=== PATIENT | female | born 1970 | race Caucasian/White ===

== ENCOUNTER 2018-11-07 18:14 | Emergency (ER) | payer MEDICAID ==
[~2018-11-07] VITALS: Ht 160 cm; Wt 136.1 kg
[2018-11-07 18:18] VITALS: BP 158/95
--- NOTE | 2018-11-07 18:20 | NUR ---
PT PLACED IN BED 4 BY EMS.
--- NOTE | 2018-11-07 18:30 | NUR ---
BIBA C/O ABD PAIN AND VAGINAL BLEEDING X2 WEEKS. PT STATES THIS IS HER NORMAL MENSTRUAL CYCLE AND USUALLY HAS HEAVY PERIODS; PT STATES CHANGES 4 PADS DAILY. PT ALSO C/O DARK RED BLOOD IN STOOL. PT HAS BEEN ON MOTRIN FOR YEARS. DENIES NAUSEA, VOMITING, HAEMATEMESIS, DIARRHEA, OR CONSTIPATION. LBM WAS YESTERDAY. PATIENT STATES PAIN OF 6/10 AT THIS TIME; VSS; PATIENT POSITIONED FOR COMFORT; HOB ELEVATED; BEDRAILS UP X2; BED DOWN. ER MD MADE AWARE OF PT STATUS.
--- NOTE | 2018-11-07 19:31 | NUR ---
Dr. Alfonso examining patient.
--- NOTE | 2018-11-07 20:05 | NUR ---
Patient discharged with v/s stable. Written and verbal after care instructions given and explained. Patient alert, oriented and verbalized understanding of instructions. Ambulatory with steady gait. All questions addressed prior to discharge. ID band removed. Patient advised to follow up with PMD. Rx of OMEPRAZOLEgiven. Patient educated on indication of medication including possible reaction and side effects. Opportunity to ask questions provided and answered.
[2018-11-07 20:06] VITALS: BP 140/92
== END 2018-11-07 20:05 | disposition home or self-care (01) ==
LOC: MED 18:14
DX: K29.70 Gastritis, unspecified, without bleeding (principal); E11.9 Type 2 diabetes mellitus without complications; I10 Essential (primary) hypertension; Z88.0 Allergy status to penicillin; Z88.5 Allergy status to narcotic agent
CPT/HCPCS: 99283